=== PATIENT | female | born 1975 | race Caucasian/White ===

== ENCOUNTER 2017-02-09 17:27 | Emergency (ER) | payer BC ==
--- NOTE | 2017-02-09 18:03 | EDM.PDOC ---
ED HPI GENERAL MEDICAL PROBLEM - General Chief Complaint: Lower Extremity Injury/Pain Stated Complaint: R LEG PAIN Time Seen by Provider: 02/09/17 17:57 Source of Information: Reports: Patient History Limitations: Reports: No Limitations - History of Present Illness INITIAL COMMENTS - FREE TEXT/NARRATIVE: Patient is a 41-year-old female presents ED complaining of right medial lower leg pain proximal to the knee. Patient states she has varicose veins and noticed the area became swollen with increased pain with palpation. She does not recall hitting the affected area and was concerned that she may have a blood clot. Area is isolated as well as the pain. There is no diffuse swelling to the right lower leg. No history of DVT/PE. States she has a long history of varicose veins since being . Otherwise has not noticed any changes as of recent. Has not taken any medications for discomfort. She has applied ice to affected area to which she states swelling has somewhat improved. She denies any fever/chills, shortness of breath, chest pain, or any additional complaints. Right Lower Leg Pain Score (Numeric/FACES): 6 - Related Data Allergies Allergy/AdvReac Type Severity Reaction Status Date / Time No Known Allergies Allergy Verified 02/09/17 17:49 Home Meds: Home Meds Levothyroxine [Synthroid] 88 mcg PO DAILY 02/09/17 [History] Review of Systems - Review of Systems Review Of Systems: ROS reveals no pertinent complaints other than HPI. ED EXAM, GENERAL - Physical Exam Exam: See Below Exam Limited By: No Limitations General Appearance: Alert, WD/WN, No Apparent Distress Ears: Hearing Grossly Normal Nose: Normal Inspection Throat/Mouth: Normal Voice, No Airway Compromise Neck: Normal Inspection, Supple Respiratory/Chest: No Respiratory Distress, Lungs Clear, Normal Breath Sounds, No Accessory Muscle Use, Chest Non-Tender Cardiovascular: Normal Peripheral Pulses, Regular Rate, Rhythm, No Murmur Peripheral Pulses: 2+: Posterior Tibial (L), Posterior Tibial (R), Dorsalis Pedis (L), Dorsalis Pedis (R) Extremities: Normal Range of Motion, Non-Tender, No Pedal Edema, Normal Capillary Refill, Other (Right lower leg: Medial aspect of the tib/fibula proximal to the knee small area of swelling with an area with varicose veins present. Swelling is localized. No pain anywhere else noted to the lower leg with palpation. No sensory/motor deficits noted. No other concerning findings noted. No palpable cord.) Neurological: Alert, Oriented, CN II-XII Intact, Normal Cognition, No Motor/ Sensory Deficits Psychiatric: Normal Affect, Normal Mood Skin Exam: Warm, Dry, Intact, Normal Color Course - Vital Signs Last Recorded V/S: Last Vital Signs Temp 98.6 F 02/09/17 17:42 Pulse 60 02/09/17 17:42 Resp 20 02/09/17 17:42 BP 145/89 H 02/09/17 17:42 Pulse Ox 99 02/09/17 17:42 - Re-Assessments/Exams Free Text/Narrative Re-Assessment/Exam: Findings consistent for varicose vein that has burst most likely secondary to trauma that she is not aware of. Swelling is localized with minimal pain present on palpation. There are no other findings concerning for DVT of the right lower leg. Peripheral pulses are intact. No sensory/motor deficits noted. No further testing required. Will discharge patient home with instructions as documented. Departure - Departure Time of Disposition: 18:03 Disposition: Home, Self-Care 01 Condition: Good Clinical Impression: Varicose veins of legs, Hematoma - Discharge Information Referrals: Kishor Coon MD [Primary Care Provider] - Forms: ED Department Discharge Additional Instructions: Bruises result when a varicose vein bursts. Bruises are caused by veins near the surface of the skin bursting, usually due to physical trauma. Ice the area of the bruise and elevate the leg as much as possible. The body will completely absorb the blood in the area of the bruise within a couple of weeks. Suggest wearing compression stockings to decrease basilar congestion. If he should have any pain associated to these areas please see her PCP for referral to have these managed by a vascular surgeon. Take Tylenol and ibuprofen in alternating fashion for pain. Utilize ice to the affected area as needed in the next 48 hours. Thereafter can alternate with warm compresses, massage, and ice. Follow- up with your PCP as needed. Return to ED for any new or worsening symptoms.
== END 2017-02-09 18:21 | disposition home or self-care (01) ==
LOC: JD.ED 17:27
CPT/HCPCS: 99283